=== PATIENT | female | born 1990 | race Caucasian/White ===

== ENCOUNTER 2020-11-05 06:56 | Day surgery (SDC) | payer BC ==
[~2020-11-05] VITALS: Ht 167.6 cm; Wt 58.1 kg
[~2020-11-05 06:56] MED LIST: ADDERALL 10 MG10 MG
[2020-11-05 07:17] LABS: HEMATOCRIT 40.8 % (36.0-48.0); HEMOGLOBIN 13.6 g/dL (12-16); MCH 30.9 pg (26.0-34.0); MCHC 33.2 g/dL (31.0-37.0); MCV 92.8 fL (80.0-100.0); MEAN PLATELET VOLUME 8.3 fL (7.4-10.4); RBC 4.39 10x6/uL (4.00-5.40); RDW 13.6 % (11.5-14.5); WBC 6.8 10x3/uL (4.8-10.8)
[2020-11-05 07:33] LABS: HCG SERUM NEGATIVE (NEGATIVE)
[2020-11-05 07:51] VITALS: BP 99/60; Ht 167.6 cm; Wt 58.1 kg
--- NOTE | 2020-11-05 11:29 | NUR ---
PT AWAKENING, OPA REMOVED
--- NOTE | 2020-11-05 13:42 | NUR ---
IV DC'D WITH CATH TIP INTACT. ASSISTED PT TO GET DRESSED.
--- NOTE | 2020-11-05 13:55 | NUR ---
DISCHARGED VIA W/C, ACCOMPANIED BY THIS NURSE, TO POV WITH SPOUSE DRIVING. ALL BELONGINGS WITH SPOUSE.
== END 2020-11-05 13:55 | disposition home or self-care (01) ==
LOC: D.OPS 06:56
PROVIDERS: Anesthesiology; ATTEND Obstetrics & Gynecology Maternal & Fetal Medicine
DX: N92.0 Excessive and frequent menstruation with regular cycle (principal); N94.6 Dysmenorrhea, unspecified; N92.6 Irregular menstruation, unspecified; N94.10 Unspecified dyspareunia